=== PATIENT | female | born 1935 ===

== ENCOUNTER 2021-01-09 06:48 | Emergency (ER) | payer OTHER ==
[2021-01-09] MEDS ORDERED: EPINEPHrine 1 MG/10 ML SYR IV ONE (06:49)
[2021-01-09] MEDS ORDERED: D50W 25 GM/50 ML SYRINGE IV ONE (06:49)
--- NOTE | 2021-01-09 07:03 | EDPHYS ---
Physician Documentation [facility] Name: Maru Kim Age: 85 yrs Sex: Female : 1935 Arrival Date: 01/09/2021 Time: 06:49 Bed 4 Private MD: ED Physician Alonso Christianson HPI: 01/09 06:51 This 85 yrs old Unknown Female presents to ER via Unassigned with complaints of CPR in [facility] progress. 06:51 Preceding the arrest, the patient was found down by family. The arrest occurred at [facility] home. Pre-hospital course: The arrest was not witnessed by others. Bystanders at the scene did not perform CPR. EMS care prior to arrival: initiation of ACLS, peripheral IV, was successfully placed. intubation was successfully performed, orally, with a LMA, oxygen, 100% by ET tube. Time elapsed prior to ACLS is unknown. ACLS has been in progress for 25 minutes. ACLS details: Initial rhythm was asystole. The presenting rhythm is asystole. Airway: oral intubation, Medications given by EMS prior to arrival - Epinephrine IV x 2 doses, Defibrillated X 1, an external pacer was not used, Response to therapy: continued arrest. Unable to obtain HPI due to comatose state, Unresponsive . According to EMS patient's found her unresponsive in bed this morning. It is not known normal she was unresponsive. Upon EMS arrival at the scene, patient was noted to be unresponsive in asystole. IV started patient intubated given a total of 2 doses of epinephrine and 1 defibrillation without return of spontaneous circulation and CPR continued in route to the ED. Upon arrival to ED patient in asystole without spontaneous respirations, spontaneous heartbeat or pulse, no response to any stimuli.. ROS: 06:51 Unable to obtain ROS due to comatose state, Unresponsive. [facility] Exam: 06:51 Head/Face: Normocephalic, atraumatic. 7 06:51 Neck: Trachea midline, no thyromegaly or masses palpated, and no cervical lymphadenopathy. Supple, full range of motion without nuchal rigidity, or vertebral point tenderness. No Meningismus. Chest/axilla: Normal chest wall appearance and motion. Nontender with no deformity. No lesions are appreciated. 06:51 Abdomen/GI: Soft, non-tender, with normal bowel sounds. No distension or tympany. No guarding or rebound. No evidence of tenderness throughout. Skin: Warm, dry with normal turgor. Normal color with no rashes, no lesions, and no evidence of cellulitis. 06:51 Constitutional: The patient appears comatose. 06:51 Eyes: Periorbital structures: appear normal, Pupils: are fixed and dilated. 06:51 ENT: Endotracheal endotracheal tube in place. 06:51 Cardiovascular: Rate: actual rate is 0 bpm, Rhythm: asystole, Pulses: not palpable, Heart sounds: Absent , Edema: is not appreciated, JVD: is not appreciated. 06:51 Respiratory: No spontaneous respirations. 06:51 Neuro: No spontaneous movement. No response to any stimuli.. Vital Signs: 06:38 BP 164 / 64; Pulse 0; Resp 0; Pulse Ox 47% on ETT ambu; Weight 63.5 kg; Height 5 ft. 2 tw5 in. (157.48 cm); 06:38 Body Mass Index 25.61 (63.50 kg, 157.48 cm) tw5 MDM: 06:51 Differential diagnosis: arrythmia, cardiac arrest, respiratory arrest, traumatic mh7 injury, overdose, asphyxiation, renal failure. Data reviewed: vital signs, nurses notes, EMS record. ED course: CPR continued upon arrival to ED. Patient noted to still be in asystole after receiving epinephrine x2 via EMS. Patient received additional epinephrine x2, sodium bicarbonate 1 amp, D50 1 amp without return of spontaneous circulation. CPR discontinued and patient pronounced at 6:48 AM. Will discuss with family upon arrival to ED.. 07:02 Patient medically screened. [facility] 08:10 ED course: I informed the of the patient's demise. He did not have any kdr questions at that time. The law enforcement and produce sorter were present.. Administered Medications: 06:42 Drug: EPINEPHrine 0.1mg/mL 1:10,000 1 mg {Note: Administered by Kaylee .} Route: IVP; tw5 Site: left antecubital; 06:45 Drug: EPINEPHrine 0.1mg/mL 1:10,000 1 mg Route: IVP; Site: left antecubital; tw5 06:46 Drug: Sodium Bicarbonate 1 amp {Note: Given by Magda.} Route: IVP; Site: left tw5 antecubital; 06:46 Drug: Calcium Gluconate 1 grams {Note: By magda.} Route: IVPB; Site: left antecubital; 06:48 Drug: D50W 50 ml {Note: by magda.} Route: IVP; Site: left antecubital; 5 Disposition: 06:51 . [facility] Disposition Summary: 01/09/21 07:02 Patient Location: [employer] [facility] Pronouncing Physician: Alonso Christianson Time of : 06:48 01/09/2021 [facility] Diagnosis - Cardiac arrest, cause unspecified [facility] Discharge Instructions: - Discharge Summary Sheet bb Forms: - SBAR form bb Signatures: Chau Hoover MD MD [facility] Alonso Christianson MD MD [facility] Maite Soria [facility]
--- NOTE | 2021-01-09 07:03 | ER ---
Nurse's Notes [facility] Name: Maru Kim Age: 85 yrs Sex: Female : 1935 Arrival Date: 01/09/2021 Time: 06:49 Bed 4 Private MD: Diagnosis: Cardiac arrest, cause unspecified Presentation: 01/09 06:38 Acuity: FILOMENA 1 tw5 06:38 Method Of Arrival: EMS: [facility] tw5 06:38 Chief complaint: Patient states: found unresponsive and not breathing this tw5 morning. EMS arrived on the scene and began CPR. They continued CPR for 20 min prior to arriving in the ER. One round of of EPI was given. Nothing else. Care prior to arrival: CPR manually performed by EMS and is still in progress. Compressions began. Compressions began prior to arrival. Screenin:38 Abuse screen: Denies threats or abuse. Denies injuries from another. Nutritional tw5 screening: Unknown. Tuberculosis screening: Unknown. Assessment: 06:38 CPR assessment: unresponsive, no respiratory effort, intubated, cyanotic, pale, pulses tw5 absent w/ compressions. Cardiac rhythm is asystole. Vital Signs: 06:38 BP 164 / 64; Pulse 0; Resp 0; Pulse Ox 47% on ETT ambu; Weight 63.5 kg; Height 5 ft. 2 tw5 in. (157.48 cm); 06:38 Body Mass Index 25.61 (63.50 kg, 157.48 cm) tw5 ED Course: 06:49 Patient arrived in ED. mw2 06:50 Alonso Christianson MD is Attending Physician. 7 06:54 Police called [facility] to have them call out the paddock judge for the recently mw2 patient. 07:01 Alonso Christianson MD is Pronouncing Provider. 7 07:08 Maite Soria is Primary Nurse. tw5 07:13 Triage completed. tw5 07:15 Patient has correct armband on for positive identification. Dentures removed. tw5 Administered Medications: 06:42 Drug: EPINEPHrine 0.1mg/mL 1:10,000 1 mg {Note: Administered by Kaylee .} Route: IVP; tw5 Site: left antecubital; 06:45 Drug: EPINEPHrine 0.1mg/mL 1:10,000 1 mg Route: IVP; Site: left antecubital; 06:46 Drug: Sodium Bicarbonate 1 amp {Note: Given by Magda.} Route: IVP; Site: left tw5 antecubital; 06:46 Drug: Calcium Gluconate 1 grams {Note: By magda.} Route: IVPB; Site: left antecubital; 06:48 Drug: D50W 50 ml {Note: by magda.} Route: IVP; Site: left antecubital; Outcome: 06:48 Outcome Patient 06:48 Patient : Time of 06:48 Pronounced by Alonso Christianson MD 06:48 Condition: 08:59 Patient left the ED. [id number] Signatures: Rui Chau RN RN [id number] Mary Duncan 2 Alonso Christianson MD MD 7 Maite Soria tw5
== END 2021-01-09 08:59 ==
LOC: ER 06:48
DX: I46.9 Cardiac arrest, cause unspecified (principal)
CPT/HCPCS: 96375; 96374; 92950; 99285; J0171